=== PATIENT | female | born 1960 | race African-American/Black ===

== ENCOUNTER 2016-08-14 13:37 | Emergency (ER) | payer OTHER ==
[~2016-08-14 13:37] MED LIST: ACETAMINOPHEN650 M1 PO; ALB/IPRATROPIUM/1 E2 INH; ASPIRIN81 M2 PO; ASPIRIN81 MG PO; ASPIRINEC PO; BENADRYL CREAM; CARVEDILOL3.125 MG PO; COREG6.25 MG PO; COZAAR25 MG PO; DOXYCYCLINE HY100 M3 PO; ENSURE113 GM PO; FAMOTIDINE20 M1 PO; FLEXERIL10 M1 PO; FLEXERIL10 MG PO; HYDROCHLOROTHIA25 MG PO; HYDROXYZINE HCL25 M1 PO; IMDUR-ER30 M2 PO; LASIX20 MG PO; LEXAPRO PO; LEXAPRO20 MG PO; LISINOPRIL10 MG PO; LISINOPRIL20 MG PO; LISINOPRIL5 MG PO; LOPRESSOR PO; LORTAB 5-325 M1 EACH PO; LOSARTAN POTASS50 MG PO; LOW DOSE ASPIRI81 M1 PO; METOPROLOL TAR25 MG PO; METOPROLOL TART25 MG PO; NAPROSYN-EC500 M1 PO; NAPROSYN500 MG PO; NICOTINE TRANSD14 MG EXT; NITROGLYCERIN0.4 MG SL; PANTOPRAZOLE SO40 MG PO; PLAVIX PO; PRINIVIL20 M1 PO; PROTONIX PO; TYLENOL325 M1 PO; WAL-DRYL25 M1 PO; ZOCOR20 MG PO
[2016-11-30] MEDS ORDERED: CARVEDILOL3.125 MG PO (15:11)
[2016-11-30] MEDS ORDERED: ASPIRIN EC81 M1 PO (15:11)
[2016-11-30] MEDS ORDERED: OXYBUTYNIN CHLO10 MG PO (15:12)
[2016-11-30] MEDS ORDERED: PRAVASTATIN SOD20 MG PO (15:12)
[2016-11-30] MEDS ORDERED: LOSARTAN POTAS100 MG PO (15:13)
[2016-11-30] MEDS ORDERED: LEXAPRO20 MG PO (15:13)
[2016-11-30] MEDS ORDERED: PANTOPRAZOLE SO40 MG PO (15:13)
[2016-11-30] MEDS ORDERED: TERBINAFINE HC250 M1 PO (15:14)
[2016-11-30] MEDS ORDERED: DILANTIN PO (15:15)
[2016-11-30] MEDS ORDERED: HYDROCODON-ACE1 EAC7 PO (15:16)
[2016-11-30] MEDS ORDERED: METHOCARBAMOL500 MG PO (15:16)
[2016-11-30] MEDS ORDERED: FLEXERIL10 MG PO (15:16)
[2016-11-30] MEDS ORDERED: SENIOR TABS1 EACH PO (15:17)
[2016-11-30] MEDS ORDERED: BREO ELLIPTA I1 EACH INH (15:18)
[2016-11-30] MEDS ORDERED: RESCUE INHALER INH (15:19)
[2016-12-24] MEDS ORDERED: PANTOPRAZOLE SO40 MG PO (14:21)
[2016-12-24] MEDS ORDERED: PRAVACHOL20 MG PO (14:21)
[2016-12-24] MEDS ORDERED: ROBAXIN500 MG PO (14:21)
[2016-12-24] MEDS ORDERED: ESCITALOPRAM OX20 MG PO (14:22)
[2016-12-24] MEDS ORDERED: MINOCYCLINE HCL45 MG PO (14:23)
[2016-12-24] MEDS ORDERED: DILANTIN PO (14:23)
[2016-12-24] MEDS ORDERED: COREG3.125 MG PO (14:24)
[2016-12-24] MEDS ORDERED: DITROPAN XL10 MG PO (14:24)
[2016-12-24] MEDS ORDERED: BREO ELLIPTA 11 EACH INH (14:25)
[2016-12-24] MEDS ORDERED: LO-DOSE ASPIRIN81 M1 PO (14:25)
[2016-12-24] MEDS ORDERED: LOSARTAN POTASS50 MG PO (14:25)
[2016-12-24] MEDS ORDERED: NITROSTAT0.4 MG SL (14:26)
[2016-12-24] MEDS ORDERED: HYDROCODON-ACE1 EAC7 PO (14:26)
[2016-12-24] MEDS ORDERED: TAZORAC30 G1 TOP (14:27)
[2016-12-24] MEDS ORDERED: CLOBETASOL E 0.60 GM TOP (14:27)
[2016-12-24] MEDS ORDERED: [UNRECOGNIZED DRUG - OTHER] TOP (14:28)
[2016-12-24] MEDS ORDERED: FLEXERIL10 MG PO (14:28)
[2016-12-24] MEDS ORDERED: CYPROHEPTADINE H4 MG PO (14:29)
[2016-12-27] MEDS ORDERED: NORCO 7.5-3251 EACH PO (07:25)
== END 2016-08-14 15:15 | disposition home or self-care (01) ==
LOC: CFTX 13:37 → CED 13:37 → CFTX 15:07
DX: B35.4 Tinea corporis (principal); J44.9 Chronic obstructive pulmonary disease, unspecified; F17.200 Nicotine dependence, unspecified, uncomplicated
CPT/HCPCS: 99282

== ENCOUNTER → 2016-09-09 | Outpatient (CLI) | payer OTHER ==
[~2016-09-09] MED LIST changes: +ASPIRIN EC81 M1 PO; +BREO ELLIPTA 11 EACH INH; +BREO ELLIPTA I1 EACH INH; +CLOBETASOL E 0.60 GM TOP; +COREG3.125 MG PO; +CYPROHEPTADINE H4 MG PO; +DILANTIN PO; +DITROPAN XL10 MG PO; +ESCITALOPRAM OX20 MG PO; +HYDROCODON-ACE1 EAC7 PO; +LO-DOSE ASPIRIN81 M1 PO; +LOSARTAN POTAS100 MG PO; +METHOCARBAMOL500 MG PO; +MINOCYCLINE HCL45 MG PO; +NITROSTAT0.4 MG SL; +NORCO 7.5-3251 EACH PO; +OXYBUTYNIN CHLO10 MG PO; +PRAVACHOL20 MG PO; +PRAVASTATIN SOD20 MG PO; +RESCUE INHALER INH; +ROBAXIN500 MG PO; +SENIOR TABS1 EACH PO; +TAZORAC30 G1 TOP; +TERBINAFINE HC250 M1 PO; +[UNRECOGNIZED DRUG - OTHER] TOP
--- NOTE | ~2016-09-09 | EE ---
Unit #: [id number] #: [id number] Patient: DANE KENNEDY [id number] [address] [address] [id number] O MR#: [id number] NAME: DANE KENNEDY : 1960 SEX: F STUDY DATE/TIME: 09/09/2016 UNIT: CEEG ROOM: STUDY DESCRIPTION: Attending Physician: Luis Fabian II., M.D. Referring Physician: Luis Fabian II., M.D. Primary Care Physician: Mckayla Mccormick A.P.R.N. NEURODIAGNOSTICS REPORT EXAM EEG. REASON FOR STUDY Memory loss and seizures. TECH Leonela. TECHNICAL INFORMATION This is a routine EEG performed using the [employer] 10/10 System electrode placement. Photic stimulation was performed. Hyperventilation was not performed. REPORT Throughout the entire study, the best background rhythm seen is approximately 9 Hz. This rhythm is seen in both posterior head regions symmetrically and does attenuate to eye opening and closure. Photic stimulation was performed which did not elicit any epileptiform abnormalities; however, a decent photic driving response was seen. Hyperventilation was not performed. There was no sleep recorded during the EEG. Throughout the entire study, there were no electrographic seizures recorded nor were there any independent epileptiform abnormalities seen. INTERPRETATION This is a normal awake EEG. A normal EEG does not rule out the possibility of a seizure disorder. Clinical correlation is advised. Dictated by... Luis Fabian II., M.D. GWS/aamir TD: 09/10/2016 15:24 JOB #: [id number] Unit #: [id number] #: [id number] Patient: DANE KENNEDY NEURODIAGNOSTICS REPORT Page 1 of 1 X NEURODIAGNOSTICS REPORT
== END | disposition home or self-care (01) ==
LOC: CEEG 09:02
DX: R41.3 Other amnesia (principal); R56.9 Unspecified convulsions
CPT/HCPCS: 95816

== ENCOUNTER → 2016-12-08 | Day surgery (SDC) | payer OTHER ==
--- NOTE | ~2016-12-08 | OR ---
Unit #: [id number] #: [id number] Patient: DANE KENNEDY [id number] [address] [address] [id number] O MR#: [id number] NAME: DANE KENNEDY ROOM: Date of Procedure: 12/08/2016 Admission Date: 12/08/2016 Surgeon: Jr Matute M.D. : 1960 Attending Physician: Jr Matute M.D. Primary Care Physician: Mckayla Mccormick A.P.R.N. OPERATIVE REPORT PREOPERATIVE DIAGNOSIS Blood in stools. POSTOPERATIVE DIAGNOSIS Blood in stools. PROCEDURES PERFORMED 1. Esophagogastroduodenoscopy. 2. Biopsy of antrum for Helicobacter pylori testing. 3. Colonoscopy to cecum. ANESTHESIA Monitored anesthesia care. FINDINGS The patient was found to have mild gastritis on upper endoscopy. On colonoscopy, the patient was found to have a normal colon except for moderate internal and external hemorrhoids. SPECIMENS Sent to pathology. COMPLICATIONS None apparent. CONDITION The patient tolerated the procedure well. INDICATIONS FOR PROCEDURE The patient is a 56-year-old black female, who has a history of colonic polyps. She has had some intermittent maroon-colored blood in her stools as well as some dark stools. She presents at this time for evaluation by upper and lower endoscopy. DESCRIPTION OF PROCEDURE After obtaining informed consent, the patient was brought to the endoscopy suite, and after adequate monitored anesthesia care, had the endoscope placed through the mouth into the upper esophagus under direct vision. It was advanced to the second and third portion of the duodenum without difficulty with the lumen always in view. The duodenum was normal as was the duodenal bulb. The pylorus opened normally. There was some mild gastritis present and a biopsy was obtained for Helicobacter pylori testing. On retroflexing back to the GE junction, no obvious Unit #: [id number] #: [id number] Patient: DANE KENNEDY abnormalities were seen. On pulling back above the GE junction, there was no stenosis, stricture, or neoplasm seen. There was no significant esophagitis. The remaining portion of the esophagus was within normal limits. Laryngeal structures were not well visualized from above. At this point in time, the colonoscope was placed through the anus and slowly advanced to the level of the cecum without difficulty with the lumen always in view. The cecum was normal as was the ileocecal valve. The ascending colon was normal as was the hepatic flexure, transverse colon, splenic flexure, descending colon, sigmoid colon, and rectum. On retroflexing the rectum to the anorectal junction, there were some moderate internal hemorrhoids. On pulling back through the anal canal, there was some moderate external hemorrhoids as well. The scope was removed without difficulty. The patient tolerated the procedure well, went from the endoscopy suite to recovery area in stable condition. RECOMMENDATIONS Gastroesophageal reflux sheet. High-fiber diet, lots of liquids, tucks or wipes p.r.n. Call office to schedule laparoscopic ventral hernia repair with Dr. Napier. Dictated by... Roseanne Maya/jamia TD: 12/09/2016 12:27 JOB #: [id number] CC: Mima LesterPTurnerRMarla [facility] OPERATIVE REPORT Page 1 of 1 X Jr Matute MD X PROCEDURE OPERATIVE NOTE
== END | disposition home or self-care (01) ==
LOC: COPS 10:36
DX: K29.70 Gastritis, unspecified, without bleeding (principal); K92.1 Melena; K64.8 Other hemorrhoids; K64.4 Residual hemorrhoidal skin tags; E11.9 Type 2 diabetes mellitus without complications; I11.0 Hypertensive heart disease with heart failure; I50.9 Heart failure, unspecified; J44.9 Chronic obstructive pulmonary disease, unspecified; I25.10 Atherosclerotic heart disease of native coronary artery without angina pectoris; I25.2 Old myocardial infarction; E78.5 Hyperlipidemia, unspecified; M10.9 Gout, unspecified; F17.210 Nicotine dependence, cigarettes, uncomplicated; Z86.010 Personal history of colon polyps; Z86.19 Personal history of other infectious and parasitic diseases; Z88.0 Allergy status to penicillin; Z88.1 Allergy status to other antibiotic agents; Z79.82 Long term (current) use of aspirin; Z79.899 Other long term (current) drug therapy
CPT/HCPCS: 87077

== ENCOUNTER → 2016-12-22 | Outpatient (CLI) | payer OTHER ==
--- NOTE | ~2016-12-22 | EKG ---
PATIENT: DANE KENNEDY UNIT #: [id number] Ventricular Rate: 76 BPM Atrial Rate: 76 BPM P-R Interval: 180 ms QRS Duration: 68 ms Q-T Interval: 370 ms QTC Calculation(Bezet): 416 ms P [place]: 76 degrees Calculated R [place]: 47 degrees Calculated T [place]: 60 degrees Diagnosis Line: Normal sinus rhythm Diagnosis Line: Possible Left atrial enlargement Diagnosis Line: Septal infarct , age undetermined Diagnosis Line: Abnormal ECG Diagnosis Line: No previous ECGs available Diagnosis Line: Confirmed by FRANK SANTIZO MD ([id number]) on Diagnosis Line: 12/23/2016 9:45:08 AM INTERPRETING MD: DARLYN MCDONALD
[2016-12-22 15:41] LABS: HEMATOCRIT 36.3 % (35.0-45.0); HEMOGLOBIN 11.7 gm/dL (12.0-16.0); MEAN CELL VOLUME 86.9 FL (83-96); MEAN CORPUSCULAR HEMOGLOBIN 27.9 PG (28-34); MEAN CORPUSCULAR HGB CONC 32.1 g/dL (30-36); RED BLOOD COUNT 4.18 X10e (3.90-5.30); RED CELL DISTRIBUTION WIDTH 17.7 % (11.0-15.5)
[2016-12-22 16:13] LABS: BILIRUBIN,TOTAL 0.2 mg/dL (0.2-2.0); BUN/CREATININE RATIO 8.57; CALCIUM SERUM 8.7 mg/dL (8.4-10.2); CREATININE SERUM 0.7 mg/dL (0.6-1.4); GLOM FILT RATE Estimated 110.7 mL/min (>60); PROTEIN TOTAL SERUM 7.1 g/dL (6.0-8.3)
== END | disposition home or self-care (01) ==
LOC: CAMB 13:46
PROVIDERS: Surgery
DX: Z01.818 Encounter for other preprocedural examination (principal); K43.9 Ventral hernia without obstruction or gangrene
CPT/HCPCS: 36415; 80053; 85027; 93005